=== PATIENT | male | born 1950 | race Caucasian/White ===

== ENCOUNTER 2021-01-13 02:54 | Day surgery (SDCO) | payer MEDICARE ==
[~2021-01-13] VITALS: Ht 185.4 cm; Wt 95.8 kg
[2021-01-13 04:26] LABS: BASOPHIL 0.3 % (0-2); EOSINOPHIL 0 % (0-7); HCT 46.9 % (42.0-52.0); HGB 15.5 g/dl (13.2-18.0); LYMPHOCYTE 1.7 % (15-48); MCH 29.8 pg (25.0-31.0); MONOCYTE 7.6 % (0-12); MPV 9.4 fL (6.0-9.5); NEUTROPHIL 88.5 % (41-80); NRBC 0; PLT 295 K/uL (150-400); RBC 5.21 M/uL (4.70-6.00); RDW 16.2 % (11.5-14.0)
[2021-01-13 04:41] LABS: ALBUMIN 3.3 g/dL (3.4-5.0); BILIRUBIN - TOTAL 0.7 mg/dL (0.2-1.0); BUN/CREAT RATIO (CALC) 43.1 RATIO; CREATININE 0.72 mg/dL (0.67-1.17); POTASSIUM 3.6 mmol/L (3.5-5.1); TOTAL PROTEIN 8.3 g/dL (6.4-8.2)
[2021-01-13 07:08] LABS: LACTIC ACID 1.8 mmol/L (0.4-1.9)
[2021-01-13 07:20] LABS: BILIRUBIN NEGATIVE (NEGATIVE); BLOOD 3+ Ery/uL (NEGATIVE); COLOR YELLOW (YELLOW); GLUCOSE (U) NORMAL (NORMAL); LEUKOCYTES TRACE Leu/uL (NEGATIVE); NITRITE POSITIVE (NEGATIVE); PROTEIN 1+ mg/dL (NEGATIVE); SPECIFIC GRAVITY >=1.030 (1.001-1.030); UROBILINOGEN 0.2 mg/dL (0.2-1.0); pH 5.5 (5.0-9.0)
[2021-01-13 07:27] LABS: CLARITY HAZY (CLEAR)
[2021-01-13 07:35] LABS: AMORPHOUS URATES CRYSTALS MODERATE; BACTERIA 2+
[2021-01-13 07:36] LABS: URINARY WBC 20-50
[2021-01-13 07:37] LABS: URIC ACID CRYSTALS TRACE
[2021-01-13] MEDS ORDERED: OXYCODONE-APAP1 TAB PO (15:46)
[2021-01-13] MEDS ORDERED: LISINOPRIL20 MG PO (15:46)
[2021-01-13] MEDS ORDERED: CETIRIZINE HCL10 MG PO (15:47)
[2021-01-13] MEDS ORDERED: GABAPENTIN300 MG PO (15:47)
[2021-01-14 04:12] LABS: BASOPHIL 0.5 % (0-2); EOSINOPHIL 2.7 % (0-7); HCT 38.9 % (42.0-52.0); HGB 12.7 g/dl (13.2-18.0); LYMPHOCYTE 16.5 % (15-48); MCH 29.7 pg (25.0-31.0); MCHC 32.6 g/dL (32.0-36.0); MCV 90.9 fL (78.0-100.0); MONOCYTE 10.5 % (0-12); MPV 9.9 fL (6.0-9.5); NEUTROPHIL 68.5 % (41-80); NRBC 0; PLT 248 K/uL (150-400); RBC 4.28 M/uL (4.70-6.00); RDW 16.6 % (11.5-14.0); WBC 10.5 K/uL (4.0-10.5)
[2021-01-14 04:32] LABS: BUN/CREAT RATIO (CALC) 25.8 RATIO; CREATININE 0.66 mg/dL (0.67-1.17); POTASSIUM 3.2 mmol/L (3.5-5.1)
[2021-01-16] MEDS ORDERED: CIPRO500 MG PO (08:39)
[2021-01-16] MEDS ORDERED: LACTINEX1 EACH PO (08:39)
== END 2021-01-16 17:00 | disposition home health service (06) ==
LOC: FER 02:54 → FTCU 07:40 → FMS 01-14 16:30
PROVIDERS: Allergy & Immunology Allergy; Emergency Medicine; ADMIT Internal Medicine
DX: N39.0 Urinary tract infection, site not specified (principal); B96.20 Unspecified Escherichia coli [E. coli] as the cause of diseases classified elsewhere; M86.651 Other chronic osteomyelitis, right thigh; G82.20 Paraplegia, unspecified; L98.419 Non-pressure chronic ulcer of buttock with unspecified severity; I10 Essential (primary) hypertension; G93.41 Metabolic encephalopathy; G89.29 Other chronic pain; Z88.0 Allergy status to penicillin; Z96.0 Presence of urogenital implants
CPT/HCPCS: 36415; 70450; 71045; 71250; 73020; 80048; 80053; 81001; 83605; 85025; 87040; 87076; 87088; 87186; 97162; 97165; 97530-GP; G0378; J0692; J1170; J1650; J3370; J7030; J7050; Q9967

== ENCOUNTER 2021-08-01 22:54 | Emergency (ER) | payer MEDICARE ==
[~2021-08-01 22:54] MED LIST: CETIRIZINE HCL10 MG PO; CIPRO500 MG PO; FLORANEX TABLE1 EACH PO; GABAPENTIN300 MG PO; LACTINEX1 EACH PO; LISINOPRIL20 MG PO; MACROBID100 MG PO; OXYCODONE-APAP1 TAB PO
[2021-08-01 23:21] LABS: BILIRUBIN 1+ mg/dL (NEGATIVE); BLOOD 3+ Ery/uL (NEGATIVE); CLARITY CLOUDY (CLEAR); COLOR RED (YELLOW); GLUCOSE (U) NORMAL (NORMAL); LEUKOCYTES 3+ Leu/uL (NEGATIVE); NITRITE POSITIVE (NEGATIVE); PROTEIN 2+ mg/dL (NEGATIVE); SPECIFIC GRAVITY 1.025 (1.001-1.030)
[2021-08-01 23:30] LABS: BACTERIA 4+; URINARY RBC TNTC; URINARY WBC TNTC
[2021-08-02 01:31] LABS: BASOPHIL 0.5 % (0-2); EOSINOPHIL 0.8 % (0-7); LYMPHOCYTE 5.8 % (15-48); MCH 29.9 pg (25.0-31.0); MCHC 32.6 g/dL (32.0-36.0); MCV 91.7 fL (78.0-100.0); MONOCYTE 3.7 % (0-12); MPV 9.5 fL (6.0-9.5); NEUTROPHIL 88.5 % (41-80); NRBC 0; PLT 251 K/uL (150-400); RBC 4.69 M/uL (4.70-6.00); WBC 16.9 K/uL (4.0-10.5)
[2021-08-02 01:52] LABS: LACTIC ACID 1.4 mmol/L (0.4-1.9)
[2021-08-02 01:58] LABS: ALBUMIN 3.3 g/dL (3.4-5.0); BILIRUBIN - TOTAL 0.8 mg/dL (0.2-1.0); BUN/CREAT RATIO (CALC) 36.7 RATIO; CREATININE 0.6 mg/dL (0.67-1.17); GLOBULIN (CALCULATION) 3.9 g/dL; POTASSIUM 3.8 mmol/L (3.5-5.1); TOTAL PROTEIN 7.2 g/dL (6.4-8.2)
[2021-08-02] MEDS ORDERED: MACROBID100 MG PO ×2 (02:16→03:14)
== END 2021-08-02 04:10 | disposition home or self-care (01) ==
LOC: FER 22:54
PROVIDERS: Emergency Medicine
DX: T83.028A Displacement of other urinary catheter, initial encounter (principal); N39.0 Urinary tract infection, site not specified; Z88.0 Allergy status to penicillin; Y84.6 Urinary catheterization as the cause of abnormal reaction of the patient, or of later complication, without mention of misadventure at the time of the procedure
CPT/HCPCS: 36415; 80053; 81001; 83605; 84145; 85025; 87040; 87088; 87186; 96365; J0692; J7030

== ENCOUNTER 2021-09-09 13:33 | Emergency (ER) | payer MEDICARE ==
[2021-09-09 16:00] LABS: BILIRUBIN NEGATIVE (NEGATIVE); BLOOD 1+ Ery/uL (NEGATIVE); CLARITY CLEAR (CLEAR); COLOR YELLOW (YELLOW); GLUCOSE (U) NORMAL (NORMAL); LEUKOCYTES 1+ Leu/uL (NEGATIVE); NITRITE NEGATIVE (NEGATIVE); PROTEIN 1+ mg/dL (NEGATIVE); SPECIFIC GRAVITY >=1.030 (1.001-1.030)
[2021-09-09 16:19] LABS: BACTERIA 2+
== END 2021-09-09 17:31 | disposition home or self-care (01) ==
LOC: FER 13:33
PROVIDERS: Emergency Medicine
DX: T83.031A Leakage of indwelling urethral catheter, initial encounter (principal); Z88.0 Allergy status to penicillin; Y84.6 Urinary catheterization as the cause of abnormal reaction of the patient, or of later complication, without mention of misadventure at the time of the procedure
CPT/HCPCS: 81001; 87088

== ENCOUNTER 2021-11-19 12:13 | Emergency (ER) | payer MEDICARE ==
[2021-11-19 13:30] LABS: BILIRUBIN 1+ mg/dL (NEGATIVE); BLOOD 3+ Ery/uL (NEGATIVE); CLARITY CLEAR (CLEAR); COLOR YELLOW (YELLOW); GLUCOSE (U) NORMAL (NORMAL); LEUKOCYTES 2+ Leu/uL (NEGATIVE); NITRITE NEGATIVE (NEGATIVE); PROTEIN 2+ mg/dL (NEGATIVE); UROBILINOGEN 0.2 mg/dL (0.2-1.0); pH 6.5 (5.0-9.0)
[2021-11-19 13:37] LABS: BACTERIA 4+
[2021-11-19 14:05] LABS: BASOPHIL 0.6 % (0-2); EOSINOPHIL 0.5 % (0-7); HCT 42.1 % (42.0-52.0); HGB 13.7 g/dl (13.2-18.0); LYMPHOCYTE 15.2 % (15-48); MCH 29.6 pg (25.0-31.0); MCHC 32.5 g/dL (32.0-36.0); MCV 90.9 fL (78.0-100.0); MONOCYTE 7.7 % (0-12); MPV 10.5 fL (6.0-9.5); NEUTROPHIL 75.2 % (41-80); NRBC 0; PLT 338 K/uL (150-400); RBC 4.63 M/uL (4.70-6.00); RDW 13.7 % (11.5-14.0); WBC 10.6 K/uL (4.0-10.5)
[2021-11-19 14:31] LABS: ALBUMIN 2.7 g/dL (3.4-5.0); BILIRUBIN - TOTAL 0.5 mg/dL (0.2-1.0); BUN/CREAT RATIO (CALC) 19.5 RATIO; CREATININE 0.82 mg/dL (0.67-1.17); GLOBULIN (CALCULATION) 5.4 g/dL; POTASSIUM 4.3 mmol/L (3.5-5.1); TOTAL PROTEIN 8.1 g/dL (6.4-8.2)
== END 2021-11-19 17:32 | disposition home or self-care (01) ==
LOC: FER 12:13
PROVIDERS: Emergency Medicine
DX: T83.038A Leakage of other urinary catheter, initial encounter (principal); L89.319 Pressure ulcer of right buttock, unspecified stage; Z88.0 Allergy status to penicillin
CPT/HCPCS: 36415; 80053; 81001; 85025; 87088; 87186